=== PATIENT | male | born 1980 | race Caucasian/White ===

== ENCOUNTER 2018-02-22 01:22 | Emergency (ER) | payer OTHER ==
[~2018-02-22] VITALS: Ht 167.6 cm; Wt 95.3 kg
--- NOTE | 2018-02-22 01:35 | ED.ADGEN ---
Past History Past Medical History: Bipolar, Depression Past Surgical History: Other Additional Smoking Information: 1 PPD Alcohol Use: None Drug Use: None Adult General Chief Complaint Chief Complaint " .. I was working on A frame.. and it slipped and caught my Rt little finger tip... and cut it off.. " HPI HPI Patient is a 37 year old male who presents with avulsion injury to Lt 5th finger tip. Pt. working at [employer]. Saw horse kicked out and he caught Lt. 5th finger under frame reportedly. Pt. distal tissue is completely crushed and contaminated with debris. Half of nail is missing. Pt is right hand dominate. Pt. does have ROM of Lt 5th finger. No other injury reported. No hx of immunosuppression. No hx of ill exposure. Not had tetanus update since high school. Review of Systems Review of Systems Constitutional: Denies fever or chills [] Eyes: Denies change in visual acuity, redness, or eye pain [] HENT: Denies nasal congestion or sore throat [] Respiratory: Denies cough or shortness of breath [] Cardiovascular: No additional information not addressed in HPI [] GI: Denies abdominal pain, nausea, vomiting, bloody stools or diarrhea [] : Denies dysuria or hematuria [] Musculoskeletal: Denies back pain or joint pain []Complaints of lt finger 5th tip amputation. Integument: Denies rash or skin lesions [] Neurologic: Denies headache, focal weakness or sensory changes [] Endocrine: Denies polyuria or polydipsia [] All other systems were reviewed and found to be within normal limits, except as documented in this note. Family History Family History Non-contributory Current Medications Current Medications Current Medications Medications (Trade) Dose Ordered Sig/Altagracia Start Time Stop Time Status Last Admin Dose Admin Bacitracin/ Polymyxin B Sulfate (Polysporin) 15 shravan STK-MED ONCE 02/22/18 02:22 02/22/18 02:23 DC Bupivacaine HCl (Sensorcaine Mpf 0.5%) 10 ml 1X ONCE 02/22/18 02:00 02/22/18 02:01 DC 02/22/18 02:00 10 ML Ceftriaxone Sodium (Rocephin Im) 1 gm 1X ONCE 02/22/18 02:00 02/22/18 02:01 DC 02/22/18 02:32 1 GM Lidocaine HCl 50 ml 1X ONCE 02/22/18 02:00 02/22/18 02:01 DC 02/22/18 02:00 50 ML Tetanus/ Diphtheria Toxoids Adsorbed (Tenivac Vial) 0.5 ml ONCE ONCE 02/22/18 02:00 02/22/18 02:01 DC 02/22/18 02:33 0.5 ML Allergies Allergies Allergies Coded Allergies Type Severity Reaction Last Updated Verified No Known Drug Allergies 09/24/15 No Physical Exam Physical Exam Constitutional: Well developed, well nourished, in acute distress, non-toxic appearance. [] HENT: Normocephalic, atraumatic, bilateral external ears normal, oropharynx moist, no oral exudates, nose normal. [] Eyes: PERRLA, EOMI, conjunctiva normal, no discharge. [] Neck: Normal range of motion, no tenderness, supple, no stridor. [] Cardiovascular:Heart rate regular rhythm, no murmur [] Lungs & Thorax: Bilateral breath sounds equal at apex with few scattered wheezes on auscultation [] Abdomen: Bowel sounds normal, soft, no tenderness, no masses, no pulsatile masses. [] Skin: Warm, dry, no erythema, no rash. [] Back: No tenderness, no CVA tenderness. [] Extremities: No tenderness, no cyanosis, no clubbing, ROM intact, no edema. [] Except amputation injury as per HPI, Neurologic: Alert and oriented X 3, normal motor function, normal sensory function, no focal deficits noted. [] Psychologic: Affect anxious, judgement normal, mood normal. [] Current Patient Data Vital Signs Vital Signs Date Time Temp Pulse Resp B/P (MAP) Pulse Ox O2 Delivery O2 Flow Rate FiO2 02/22/18 01:26 98.0 93 20 97 Room Air EKG EKG [] Radiology/Procedures Radiology/Procedures My interpretation of hand shows crush injury with loss of finger tip 5th[] Course & Med Decision Making Course & Med Decision Making Pertinent Labs and Imaging studies reviewed. (See chart for details) Injury cleaning and limited repair. - Tip skin of 5th finger Lt. was crushed and on Ice. Tissue was not amendable to re- attachment. Hand and wound cleaned with surgical soap and water. Digital block with Lido and Sensorcaine. Re-irrigated with range of motion with NS extensively. Scrapped edge of wound to remove debris.. Six 4-0 Prolene suture s to draw finger pad over tip of finger. Required 3 sutures thru. nail. Bactracin ointment apply with bulky noncompressive dressing. David tapped to 4th finger. Pt. to take Keflex 500 three times day x 10 day. Must follow with work comp. Pt. to take a daily ASA. Pt. encourage not to smoke. Elevate hand tonight to reduce pain. Take tylenol and ibuprofen or NSAIDs for pain. May need further surgical repair. [] Final Impression Final Impression 1. Avulsion / Amputation Injury. [] Lt 5th finger. Dragon Disclaimer Dragon Disclaimer This electronic medical record was generated, in whole or in part, using a voice recognition dictation system. CHAS JOYNER MD Feb 22, 2018 01:35
[2018-02-22] MEDS: LIDOCAINE 1% 50 ML VIAL. IV ONE (02:00)
[2018-02-22] MEDS: BUPIVACAINE MPF 0.5% 10 ML VIAL. IJ ONE (02:00)
[2018-02-22] MEDS ORDERED: BACITRACIN/POLYMYXIN B TOPICAL OINT 15GM TUBE. TP ONE ×2 (02:22→04:15)
[2018-02-22] MEDS: cefTRIAXone IM 1 GM VIAL IM ONE (02:32)
[2018-02-22] MEDS: TETANUS AND DIPHTHERIA TOX/PF 0.5 ML VIAL. VAX IM ONE (02:33)
[2018-02-22] MEDS ORDERED: BACI28.34 TP (02:39)
[2018-02-22] MEDS ORDERED: CEPH-264 PO (02:39)
[2018-02-22 02:44] VITALS: BP 120/75
[2018-02-22] MEDS ORDERED: NEOMY/BACITR/POLYMYXIN OINT PACKET. TP ONE (03:53)
--- NOTE | 2018-02-22 08:03 | RAD ---
Indication: Smashed left fifth digit. technique: 3 views of the left hand COMPARISON: None FINDINGS: There is elevation of the tip of the fifth finger including the tip of the distal phalanx of the fifth finger with overlying soft tissue laceration. No other fracture or dislocation. IMPRESSION: Amputation of the tip of the fifth finger including the tip of the distal phalanx. Electronically signed by: Brandt Thacker DO (02/22/2018 8:00 AM) [facility]
== END 2018-02-22 02:56 | disposition home or self-care (01) ==
LOC: ER 01:22
DX: S68.117A Complete traumatic metacarpophalangeal amputation of left little finger, initial encounter (principal); F31.9 Bipolar disorder, unspecified; F17.210 Nicotine dependence, cigarettes, uncomplicated; W26.8XXA Contact with other sharp object(s), not elsewhere classified, initial encounter; Y93.89 Activity, other specified; Y92.89 Other specified places as the place of occurrence of the external cause; Y99.8 Other external cause status
CPT/HCPCS: 11730; 73130; 90471; 90714; 96372; 99284; J0696

== ENCOUNTER 2018-09-07 19:28 | Emergency (ER) | payer BC, OTHER ==
[~2018-09-07] VITALS: Ht 167.6 cm; Wt 95.0 kg
[~2018-09-07 19:28] MED LIST: BACI28.34 TP; CEPH-264 PO
--- NOTE | 2018-09-07 19:35 | ED.ADGEN ---
Past History Past Medical History: Bipolar, Depression, GERD Past Surgical History: Other Smoking: Cigarettes Alcohol Use: None Drug Use: None Adult General Chief Complaint Chief Complaint ".. I got severe abdomen pain.. I ve had stuff like this before.. they thought it was gastritis or ulcer... I ate a steak about 1 1/2 hours ago... and it r eally set off my stomach pain..." HPI HPI Patient is a 38 year old male who presents with above hx and complaints of generalized upper abdomen tenderness. Patient states he's had this discomfort before and was diagnosed with GERD and gastritis and possible ulcer.. At that time he was treated with Carafate. Patient has had a colonoscopy a number years ago in which they evaluated suspected abdomen masses. Patient denies any tarry stools. Patient does smoke. No recent travel or specific ill contacts. No history of bad food intake. Patient normally follows with Dr. De Anda. No family history or patient history of renal stones, IBS, colitis, Crohn's, or gallbladder disease. Patient currently rates his pain as severe. Review of Systems Review of Systems Constitutional: Denies fever or chills [] Eyes: Denies change in visual acuity, redness, or eye pain [] HENT: Denies nasal congestion or sore throat [] Respiratory: Denies cough or shortness of breath [] Cardiovascular: No additional information not addressed in HPI [] GI: Complaints of upper abdominal pain, nausea,. Denies vomiting, bloody stools or diarrhea [] : Denies dysuria or hematuria [] Musculoskeletal: Denies back pain or joint pain [] Integument: Denies rash or skin lesions [] Neurologic: Denies headache, focal weakness or sensory changes [] Endocrine: Denies polyuria or polydipsia [] All other systems were reviewed and found to be within normal limits, except as documented in this note. Family History Family History Does not know family medical history. Current Medications Current Medications Current Medications Medications (Trade) Dose Ordered Sig/Altagracia Start Time Stop Time Status Last Admin Dose Admin Famotidine (Pepcid Vial) 20 mg STK-MED ONCE 09/07/18 20:04 09/07/18 20:05 DC Iohexol (Omnipaque 240 Mg/ml) 50 ml 1X ONCE 09/07/18 20:30 5/15/19 20:31 DC 09/07/18 22:10 50 ML Iohexol (Omnipaque 300 Mg/ml) 75 ml 1X ONCE 09/07/18 20:30 09/07/18 20:31 DC 09/07/18 22:10 75 ML Lactated Ringer's 1,000 ml @ 1,000 mls/hr 1X ONCE 09/07/18 22:30 09/07/18 23:29 DC Lorazepam (Ativan Inj) 2 mg 1X ONCE 09/07/18 20:45 09/07/18 20:46 DC 09/07/18 20:50 2 MG Magnesium Hydroxide (Milk Of Magnesia) 2,400 mg 1X ONCE 09/07/18 20:15 09/07/18 20:16 DC 09/07/18 20:11 2,400 MG Morphine Sulfate (Morphine 10mg Syringe) 10 mg 1X ONCE 09/07/18 20:15 09/07/18 20:16 DC 09/07/18 20:11 10 MG Ondansetron HCl (Zofran) 4 mg STK-MED ONCE 09/07/18 20:03 09/07/18 20:04 DC Allergies Allergies Allergies Coded Allergies Type Severity Reaction Last Updated Verified No Known Drug Allergies 09/24/15 No Physical Exam Physical Exam Constitutional: Moderately acute distress, non-toxic appearance. [] HENT: Normocephalic, atraumatic, bilateral external ears normal, oropharynx moist, no oral exudates, nose normal. [] Eyes: PERRLA, EOMI, conjunctiva normal, no discharge. [] Neck: Normal range of motion, no tenderness, supple, no stridor. [] Cardiovascular:Heart rate regular rhythm, no murmur [] Lungs & Thorax: Bilateral breath sounds equal at apex with scattered wheezes on auscultation [] Abdomen: Bowel sounds hyperactive, soft, epigastric tenderness, no masses, no pulsatile masses. Declines rectal exam this time. Abdomen is distended. No true rebound, but generalized pain. Skin: Warm, dry, no erythema, no rash. Multiple tattoos. Back: No tenderness, no CVA tenderness. [] Extremities: No tenderness, no cyanosis, no clubbing, ROM intact, no edema. [] No true psoas sign. Neurologic: Alert and oriented X 3, normal motor function, normal sensory function, no focal deficits noted. [] Psychologic: Affect anxious, judgement normal, mood normal. [] Current Patient Data Vital Signs Vital Signs Date Time Temp Pulse Resp B/P (MAP) Pulse Ox O2 Delivery O2 Flow Rate FiO2 09/07/18 23:31 92 17 126/88 (101) 97 09/07/18 20:41 Room Air 09/07/18 19:42 98.4 Lab Results Laboratory Tests Test 09/07/18 20:28 09/07/18 22:28 White Blood Count 9.5 x10^3/uL (4.0-11.0) Red Blood Count 5.28 x10^6/uL (4.30-5.70) Hemoglobin 16.3 g/dL (13.0-17.5) Hematocrit 46.7 % (39.0-53.0) Mean Corpuscular Volume 89 fL (79-100) Mean Corpuscular Hemoglobin 31 pg (25-35) Mean Corpuscular Hemoglobin Concent 35 g/dL (31-37) Red Cell Distribution Width 13.2 % (11.5-14.5) Platelet Count 335 x10^3/uL (140-400) Neutrophils (%) (Auto) 47 % (31-73) Lymphocytes (%) (Auto) 37 % (24-48) Monocytes (%) (Auto) 14 % (0-9) H Eosinophils (%) (Auto) 2 % (0-3) Basophils (%) (Auto) 0 % (0-3) Neutrophils # (Auto) 4.5 x10^3uL (1.8-7.7) Lymphocytes # (Auto) 3.5 x10^3/uL (1.0-4.8) Monocytes # (Auto) 1.3 x10^3/uL (0.0-1.1) H Eosinophils # (Auto) 0.2 x10^3/uL (0.0-0.7) Basophils # (Auto) 0.0 x10^3/uL (0.0-0.2) Prothrombin Time 10.1 SEC (9.4-11.4) Prothrombin Time INR 1.0 (0.9-1.1) PTT 27 SEC (23-33) Sodium Level 138 mmol/L (136-145) Potassium Level 3.6 mmol/L (3.5-5.1) Chloride Level 101 mmol/L (98-107) Carbon Dioxide Level 26 mmol/L (21-32) Anion Gap 11 (6-14) Blood Urea Nitrogen 22 mg/dL (8-26) Creatinine 1.5 mg/dL (0.7-1.3) H Estimated GFR (Cockcroft-Gault) 51.8 Glucose Level 105 mg/dL (70-99) H Calcium Level 9.4 mg/dL (8.5-10.1) Total Bilirubin 0.5 mg/dL (0.2-1.0) Direct Bilirubin 0.1 mg/dL (0.0-0.2) Aspartate Amino Transferase (AST) 27 U/L (15-37) Alanine Aminotransferase (ALT) 36 U/L (16-63) Alkaline Phosphatase 80 U/L (46-116) Creatine Kinase 931 U/L (39-308) H Troponin I Quantitative < 0.017 ng/mL (0-0.055) Total Protein 8.1 g/dL (6.4-8.2) Albumin 4.3 g/dL (3.4-5.0) Amylase Level 45 U/L (25-115) Lipase 110 U/L (73-393) Urine Collection Type Unknown Urine Color Yellow Urine Clarity Clear Urine pH 5.5 Urine Specific Fitzwilliam 1.015 Urine Protein Neg (NEG-TRACE) Urine Glucose (UA) Neg mg/dL (NEG) Urine Ketones (Stick) Neg mg/dL (NEG) Urine Blood Neg (NEG) Urine Nitrite Neg (NEG) Urine Bilirubin Neg (NEG) Urine Urobilinogen Dipstick 0.2 mg/dL (0.2 mg/dL) Urine Leukocyte Esterase Neg (NEG) Urine RBC 0 /HPF (0-2) Urine WBC Rare /HPF (0-4) Urine Squamous Epithelial Cells Occ /LPF Urine Bacteria 0 /HPF (0-FEW) Urine Opiates Screen Pos (NEG) Urine Methadone Screen Neg (NEG) Urine Barbiturates Neg (NEG) Urine Phencyclidine Screen Neg (NEG) Urine Amphetamine/Methamphetamine Neg (NEG) Urine Benzodiazepines Screen Neg (NEG) Urine Cocaine Screen Neg (NEG) Urine Cannabinoids Screen Pos (NEG) Urine Ethyl Alcohol Neg (NEG) EKG EKG My interpretation of EKG shows a sinus rhythm at 83 bpm. There are mild leftward axis changes. But no findings acute STEMI with contralateral changes.[] Radiology/Procedures Radiology/Procedures My interpretation of acute abdomen film shows no nipple studs. No free air under diaphragm. Nonspecific bowel gas pattern. Stool throughout the colon. Nonobstructive bowel gas pattern. CT of abdomen shows no surgical pathology. Bladder was distended. Appendix was well visualized within normal limits. Gallbladder was contracted. See formal report when available[] Course & Med Decision Making Course & Med Decision Making Pertinent Labs and Imaging studies reviewed. (See chart for details) Patient remain on a clear fluid diet for 2 days. No solids or milk products must allow bowel rest. Clear fluids only. Take Tylenol and ibuprofen pain. Take Zantac 150 mg twice a day. Follow-up primary care. Get out patient GI consult for an EGD and repeat colonoscopy. Patient return if any concerns. Patient encouraged not to smoke. [] Final Impression Final Impression 1. Abdomen Pain 2. Tobacco and marijuana Use[] 3. Elevated creatinine 1.5 4. Elevated CK 931 5. Suspect gastritis/duodenitis Dragon Disclaimer Dragon Disclaimer This electronic medical record was generated, in whole or in part, using a voice recognition dictation system. Dragon Disclaimer This chart was dictated in whole or in part using Voice Recognition software in a busy, high-work load, and often noisy Emergency Department environment. It may contain unintended and wholly unrecognized errors or omissions. Discharge Summary Visit Information Final Diagnosis Problems Medical Problems: (1) Gastritis Status: Acute (2) Pain in the abdomen Status: Acute Brief Hospital Course Allergies Allergies Coded Allergies Type Severity Reaction Last Updated Verified No Known Drug Allergies 09/24/15 No Vital Signs Vital Signs Date Time Temp Pulse Resp B/P (MAP) Pulse Ox O2 Delivery O2 Flow Rate FiO2 09/07/18 23:31 92 17 126/88 (101) 97 09/07/18 20:41 Room Air 09/07/18 19:42 98.4 Lab Results Laboratory Tests Test 09/07/18 20:28 09/07/18 22:28 White Blood Count 9.5 x10^3/uL (4.0-11.0) Red Blood Count 5.28 x10^6/uL (4.30-5.70) Hemoglobin 16.3 g/dL (13.0-17.5) Hematocrit 46.7 % (39.0-53.0) Mean Corpuscular Volume 89 fL (79-100) Mean Corpuscular Hemoglobin 31 pg (25-35) Mean Corpuscular Hemoglobin Concent 35 g/dL (31-37) Red Cell Distribution Width 13.2 % (11.5-14.5) Platelet Count 335 x10^3/uL (140-400) Neutrophils (%) (Auto) 47 % (31-73) Lymphocytes (%) (Auto) 37 % (24-48) Monocytes (%) (Auto) 14 % (0-9) Eosinophils (%) (Auto) 2 % (0-3) Basophils (%) (Auto) 0 % (0-3) Neutrophils # (Auto) 4.5 x10^3uL (1.8-7.7) Lymphocytes # (Auto) 3.5 x10^3/uL (1.0-4.8) Monocytes # (Auto) 1.3 x10^3/uL (0.0-1.1) Eosinophils # (Auto) 0.2 x10^3/uL (0.0-0.7) Basophils # (Auto) 0.0 x10^3/uL (0.0-0.2) Prothrombin Time 10.1 SEC (9.4-11.4) Prothromb Time International Ratio 1.0 (0.9-1.1) Activated Partial Thromboplast Time 27 SEC (23-33) Sodium Level 138 mmol/L (136-145) Potassium Level 3.6 mmol/L (3.5-5.1) Chloride Level 101 mmol/L (98-107) Carbon Dioxide Level 26 mmol/L (21-32) Anion Gap 11 (6-14) Blood Urea Nitrogen 22 mg/dL (8-26) Creatinine 1.5 mg/dL (0.7-1.3) Estimated GFR (Cockcroft-Gault) 51.8 Glucose Level 105 mg/dL (70-99) Calcium Level 9.4 mg/dL (8.5-10.1) Total Bilirubin 0.5 mg/dL (0.2-1.0) Direct Bilirubin 0.1 mg/dL (0.0-0.2) Aspartate Amino Transf (AST/SGOT) 27 U/L (15-37) Alanine Aminotransferase (ALT/SGPT) 36 U/L (16-63) Alkaline Phosphatase 80 U/L (46-116) Creatine Kinase 931 U/L (39-308) Troponin I Quantitative < 0.017 ng/mL (0-0.055) Total Protein 8.1 g/dL (6.4-8.2) Albumin 4.3 g/dL (3.4-5.0) Amylase Level 45 U/L (25-115) Lipase 110 U/L (73-393) Urine Collection Type Unknown Urine Color Yellow Urine Clarity Clear Urine pH 5.5 Urine Specific Fitzwilliam 1.015 Urine Protein Neg (NEG-TRACE) Urine Glucose (UA) Neg mg/dL (NEG) Urine Ketones (Stick) Neg mg/dL (NEG) Urine Blood Neg (NEG) Urine Nitrite Neg (NEG) Urine Bilirubin Neg (NEG) Urine Urobilinogen Dipstick 0.2 mg/dL (0.2 mg/dL) Urine Leukocyte Esterase Neg (NEG) Urine RBC 0 /HPF (0-2) Urine WBC Rare /HPF (0-4) Urine Squamous Epithelial Cells Occ /LPF Urine Bacteria 0 /HPF (0-FEW) Urine Opiates Screen Pos (NEG) Urine Methadone Screen Neg (NEG) Urine Barbiturates Neg (NEG) Urine Phencyclidine Screen Neg (NEG) Urine Amphetamine/Methamphetamine Neg (NEG) Urine Benzodiazepines Screen Neg (NEG) Urine Cocaine Screen Neg (NEG) Urine Cannabinoids Screen Pos (NEG) Urine Ethyl Alcohol Neg (NEG) Brief Hospital Course Mr. Dockery is a 38 old [sex] who presented with [ ] Discharge Information Dischare Medications Current Medications Lactated Ringer's 1,000 ml @ 1,000 mls/hr Q1H IV Last administered on 09/07/18at 20:12; Admin Dose 1,000 MLS/HR; Start 09/07/18 at 19:51; Stop 09/07/18 at 20:50; Status DC Ondansetron HCl (Zofran) 8 mg 1X ONCE IV Last administered on 09/07/18at 20:11; Admin Dose 8 MG; Start 09/07/18 at 20:15; Stop 09/07/18 at 20:16; Status DC Famotidine (Pepcid Vial) 20 mg 1X ONCE IVP Last administered on 09/07/18at 20:11; Admin Dose 20 MG; Start 09/07/18 at 20:15; Stop 09/07/18 at 20:16; Status DC Magnesium Hydroxide (Milk Of Magnesia) 2,400 mg 1X ONCE PO Last administered on 09/07/18at 20:11; Admin Dose 2,400 MG; Start 09/07/18 at 20:15; Stop 09/07/18 at 20:16; Status DC Morphine Sulfate (Morphine 10mg Syringe) 10 mg 1X ONCE SQ Last administered on 09/07/18at 20:11; Admin Dose 10 MG; Start 09/07/18 at 20:15; Stop 09/07/18 at 20:16; Status DC Ondansetron HCl (Zofran) 4 mg STK-MED ONCE .ROUTE ; Start 09/07/18 at 20:03; Stop 09/07/18 at 20:04; Status DC Famotidine (Pepcid Vial) 20 mg STK-MED ONCE .ROUTE ; Start 09/07/18 at 20:04; Stop 09/07/18 at 20:05; Status DC Iohexol (Omnipaque 240 Mg/ml) 50 ml 1X ONCE PO Last administered on 09/07/18at 22:10; Admin Dose 50 ML; Start 09/07/18 at 20:30; Stop 09/07/18 at 20:31; Status DC Iohexol (Omnipaque 300 Mg/ml) 75 ml 1X ONCE IV Last administered on 09/07/18at 22:10; Admin Dose 75 ML; Start 09/07/18 at 20:30; Stop 09/07/18 at 20:31; Status DC Lorazepam (Ativan Inj) 2 mg 1X ONCE IV Last administered on 09/07/18at 20:50; Admin Dose 2 MG; Start 09/07/18 at 20:45; Stop 09/07/18 at 20:46; Status DC Lactated Ringer's 1,000 ml @ 1,000 mls/hr 1X ONCE IV ; Start 09/07/18 at 22:30; Stop 09/07/18 at 23:29; Status DC Active Scripts Active Zantac (Ranitidine Hcl) 150 Mg Tablet 1 Tab PO BID Polysporin Ointment (Bacitracin/Polymyxin B Sulfate) 28.3 Gm Oint...g. 28.3 Gm TP QID 30 Days Keflex (Cephalexin) 500 Mg Capsule 500 Mg PO TID 10 Days CHAS JOYNER MD September 07, 2018 19:35
[2018-09-07] MEDS ORDERED: IV RINGERS SOLUTION,LACTATED 1,000 ML IV SCH (19:51)
[2018-09-07] MEDS ORDERED: ONDANSETRON PF 4 MG/2 ML VIAL. ONE (20:03)
[2018-09-07] MEDS ORDERED: FAMOTIDINE 20 MG/2 ML VIAL ONE (20:04)
[2018-09-07] MEDS ORDERED: MORPHINE SULFATE 10 MG/ML SYRINGE. SQ ONE (20:15)
[2018-09-07] MEDS ORDERED: MAGNESIUM HYDROXIDE 2,400 MG/30 ML ORAL.SUSP. PO ONE (20:15)
[2018-09-07] MEDS ORDERED: FAMOTIDINE 20 MG/2 ML VIAL IVP ONE (20:15)
[2018-09-07] MEDS ORDERED: ONDANSETRON PF 4 MG/2 ML VIAL. IV ONE (20:15)
--- NOTE | 2018-09-07 20:16 | EKG ---
[address] [id number] Test Date: 2018-09-07 Test Time: 20:13:15 Pat Name: ARNULFO SIMS Department: Room: Gender: M Farm Equipment Assembler: GIOVANI : 1980 Requested By: CHAS JOYNER Order Number: [id number] Reading MD: Michele Donis Measurements Intervals [place] Rate: 83 P: 31 ME: 154 QRS: -1 QRSD: 78 T: 6 QT: 342 QTc: 402 Interpretive Statements SINUS RHYTHM LEFTWARD AXIS Electronically Signed On 09-30-2018 12:09:56 CDT by Michele Donis
[2018-09-07] MEDS ORDERED: IOHEXOL 240 MG/ML 50ML VIAL. PO ONE (20:30)
[2018-09-07] MEDS ORDERED: IOHEXOL 300 MG/ML 75 ML VIAL. IV ONE (20:30)
[2018-09-07 20:55] LABS: BASO % 0 % (0-3); EOS # 0.2 x10^3/uL (0.0-0.7); EOS % 2 % (0-3); HEMATOCRIT 46.7 % (39.0-53.0); HEMOGLOBIN 16.3 g/dL (13.0-17.5); LYMPH # 3.5 x10^3/uL (1.0-4.8); LYMPH % 37 % (24-48); MEAN CORPUSCULAR HEMOGLOBIN 31 pg (25-35); MEAN CORPUSCULAR HGB CONC 35 g/dL (31-37); MEAN CORPUSCULAR VOLUME 89 fL (79-100); MONO # 1.3 x10^3/uL (0.0-1.1); MONO % 14 % (0-9); NEUT # 4.5 x10^3uL (1.8-7.7); NEUT % 47 % (31-73); PLATELET COUNT 335 x10^3/uL (140-400); RED BLOOD COUNT 5.28 x10^6/uL (4.30-5.70); RED CELL DISTRIBUTION WIDTH 13.2 % (11.5-14.5); WHITE BLOOD COUNT 9.5 x10^3/uL (4.0-11.0)
[2018-09-07 21:12] LABS: ALBUMIN 4.3 g/dL (3.4-5.0); CALCIUM 9.4 mg/dL (8.5-10.1); CREATININE 1.5 mg/dL (0.7-1.3); DIRECT BILIRUBIN 0.1 mg/dL (0.0-0.2); GFR 51.8; POTASSIUM 3.6 mmol/L (3.5-5.1); TOTAL BILIRUBIN 0.5 mg/dL (0.2-1.0); TOTAL PROTEIN 8.1 g/dL (6.4-8.2)
[2018-09-07] MEDS ORDERED: IV RINGERS SOLUTION,LACTATED 1,000 ML IV ONE (22:30)
[2018-09-07 22:56] LABS: BARBITURATES NEG (NEG); BENZODIAZEPINES NEG (NEG); CANNABINOIDS POS (NEG); COCAINE NEG (NEG); METHADONE NEG (NEG); OPIATES POS (NEG); PHENCYCLIDINE NEG (NEG)
--- NOTE | 2018-09-07 22:56 | RAD ---
CT scan abdomen and pelvis with contrast 09/07/2018 CLINICAL HISTORY: Upper abdominal pain. Nausea and vomiting. TECHNIQUE: After the oral and intravenous administration of contrast, contiguous, 5 mm axial sections were obtained through abdomen and pelvis. 75 cc of Omnipaque 300 were administered intravenously during this examination. One or more of the following individualized dose reduction techniques were utilized for this study: 1. Automated exposure control. 2. Adjustment of the mA and/or kV according to patient size. 3. Use of iterative reconstruction technique. FINDINGS: Images through the lung bases demonstrate minimal dependent subsegmental atelectasis bilaterally. The liver parenchyma has a decreased attenuation consistent with fatty infiltration. The spleen, pancreas, adrenal glands and kidneys are within normal limits. The abdominal aorta tapers normally. The gallbladder is contracted. No free fluid or free air is seen within the abdomen. There is no evidence of bowel obstruction. The appendix is well-visualized and is within normal limits. Images through the pelvis demonstrate the urinary bladder distended with urine. No free fluid is seen. Calcifications are seen within the pelvis consistent with phleboliths. Minimal S-shaped curvature of the thoracolumbar spine is seen. IMPRESSION: No acute abnormality is seen. Electronically signed by: Carlo Islas MD (09/07/2018 10:53 PM) [facility]
[2018-09-07 22:57] LABS: BILIRUBIN,URINE NEG (NEG); CLARITY,URINE CLEAR; COLOR,URINE YELLOW; GLUCOSE,URINE NEG (NEG); NITRITE,URINE NEG (NEG); UROBILINOGEN,URINE 0.2 mg/dL (0.2 mg/dL)
[2018-09-07 22:58] LABS: BACTERIA,URINE 0 /HPF (0-FEW); RBC,URINE 0 /HPF (0-2); SQUAMOUS EPITHELIAL CELL,UR OCC /LPF; WBC,URINE RARE /HPF (0-4)
[2018-09-07 22:59] LABS: AMPHETAMINE/METHAMPHETAMINE NEG (NEG)
[2018-09-07] MEDS ORDERED: RANI150T21 PO (23:09)
[2018-09-07 23:31] VITALS: BP 126/88
--- NOTE | 2018-09-08 00:14 | RAD ---
Acute abdominal series to include a PA chest radiograph 09/07/2018 Clinical History: Upper abdominal pain. A PA digital radiograph of the chest was obtained. Supine and erect AP digital radiographs of the abdomen/pelvis were obtained. No previous studies are available for comparison. The cardiac and mediastinal silhouettes are within normal limits in size and configuration. No pulmonary infiltrate is seen. No pleural effusion or pneumothorax is noted. The abdominal bowel gas pattern is nonobstructive. There is no evidence of free air. No radiopaque calculus is seen. The osseous structures are grossly intact. Impression: Negative study. Electronically signed by: Carlo Islas MD (09/08/2018 12:11 AM) [facility]
== END 2018-09-07 23:35 | disposition home or self-care (01) ==
LOC: ER 19:28
DX: K29.70 Gastritis, unspecified, without bleeding (principal); R79.82 Elevated C-reactive protein (CRP); F31.9 Bipolar disorder, unspecified; K21.9 Gastro-esophageal reflux disease without esophagitis; F17.210 Nicotine dependence, cigarettes, uncomplicated; F12.90 Cannabis use, unspecified, uncomplicated
CPT/HCPCS: 36415; 74022; 74177; 80048; 80076; 80307; 81001; 82150; 82550; 83690; 84484; 85025; 85610; 85730; 93005; 96361; 96372; 96374; 96375; 99285; J2060; J2270; J2405; J3490; J7120; Q9966; Q9967

== ENCOUNTER 2020-12-10 21:10 | Emergency (ER) | payer BC ==
[~2020-12-10] VITALS: Ht 167.6 cm; Wt 95.0 kg
[~2020-12-10 21:10] MED LIST changes: +RANI-376 PO
[2020-12-10 21:20] VITALS: BP 144/88
[2020-12-10] MEDS ORDERED: AMOX1TAB61 PO (22:12)
--- NOTE | 2020-12-10 22:12 | PHYS DOC ---
Past History Past Medical History: Bipolar, Depression, GERD (ELÍAS FINK APRN) Past Surgical History: Other (ELÍAS FINK APRN) Smoking: Cigarettes Alcohol Use: Occasionally Drug Use: None (ELÍAS FINK APRN) General Adult EDM: Chief Complaint: ANIMAL BITE HPI: HPI: Patient is a 40-year-old male who presents to the ER following a dog bite to his left anterior lower leg. He reports that his 2 dogs were fighting and he tried to break it up and he was bit. He reports that the dogs were vaccinated. Tetanus up-to-date. Patient states that he is unable to bear weight but he does not think that he has a fracture. Patient has good range of motion of his lower extremities and denies any decreased sensation to his lower extremity. (ELÍAS FINK APRN) Review of Systems: Review of Systems: 14 body systems of the review of systems have been reviewed. See HPI for pertinent positive and negative responses, otherwise all other systems are negative, nonpertinent or noncontributory (ELÍAS FINK APRN) Allergies: Allergies: Allergies Coded Allergies Type Severity Reaction Last Updated Verified No Known Drug Allergies 09/24/15 No (ELÍAS FINK APRN) Physical Exam: PE: Constitutional: Well developed, well nourished, no acute distress, non-toxic appearance. [] HENT: Normocephalic, atraumatic, bilateral external ears normal, oropharynx moist, no oral exudates, nose normal. [] Eyes: PERRL, EOMI, conjunctiva normal, no discharge. [] Neck: Normal range of motion, no stridor Cardiovascular: Normal peripheral perfusion Lungs & Thorax: Normal work of breathing Skin: Warm, dry, no erythema, no rash. [] Back: Normal range of motion Extremities: No tenderness, no cyanosis, no clubbing, ROM intact, no edema. [] Left lower extremity: 5 cm x 1 cm laceration noted to his left lower anterior calf with a 1 cm puncture to the posterior aspect of his left calf, no active bleeding, neuro intact, range of motion intact Neurologic: Alert and oriented X 3, normal motor function, normal sensory function, no focal deficits noted. [] Psychologic: Affect normal, judgement normal, mood normal. [] (ELÍAS FINK APRN) EKG: EKG: [] (ELÍAS FNIK APRN) Radiology/Procedures: Radiology/Procedures: [] (ELÍAS FINK APRN) Heart Score: C/O Chest Pain: No Risk Factors: Risk Factors: DM, Current or recent (<one month) smoker, HTN, HLP, family history of CAD, obesity. Risk Scores: Score 0 - 3: 2.5% MACE over next 6 weeks - Discharge Home Score 4 - 6: 20.3% MACE over next 6 weeks - Admit for Clinical Observation Score 7 - 10: 72.7% MACE over next 6 weeks - Early Invasive Strategies (ELÍAS FINK APRN) Course & Med Decision Making: Course & Med Decision Making Pertinent Labs and Imaging studies reviewed. (See chart for details) Patient is a 40-year-old male being seen in the ER for a dog bite to his left lower leg. Dog is vaccinated. Tetanus up-to-date per patient. Patient is refusing an x-ray. Wound was cleansed with chlorhexidine and saline. Laceration was repaired. Patient tolerated procedure. Neurologically intact pre and post procedure. Wound was dressed. Patient given signs of infection to watch for. Patient advised to follow-up with plastic surgery at [facility]. I discussed with patient all findings and diagnostic testing as well as the need to follow-up with PCP for further evaluation and treatment or return to the ER if any new or worsening symptoms. Strict return precautions were also discussed at length. Patient voiced understanding and agreement with the plan. Patient is hemodynamically stable at the time of disposition. (ELÍAS FINK APRN) Course & Med Decision Making Did not see or evaluate patient. Agree with DIRECTOR OF HOME ECONOMICS's work-up and disposition per note. (MARICEL WAGNER MD) Dragon Disclaimer: Dragon Disclaimer: This electronic medical record was generated, in whole or in part, using a voice recognition dictation system. (ELÍAS FINK APRN) Laceration Repair Lac Repair Time: 2007 Confirmed: Patient, procedure, site, and site correct Consent: Patient has given verbal consent Laceration location: Left lower extremity Shape: Irregular Depth: With muscle involvement Details: Clean with no foreign material Neurovascular, tendon exam: Intact Anesthesia: 1% lidocaine and let Preparation: Sterile field established Irrigation: Wound irrigated with chlorhexidine and sterile saline Debridement: Skin closure: Simple interrupted sutures placed Size of suture: 3-0 Ethilon Number of sutures: 6 sutures placed to the anterior aspect of left lower extremity. One suture placed to laceration in the posterior aspect of left lower extremity Complexity: Single layer Post procedure exam: Circulation, motor, sensory exam intact, bleeding controlled. Complications: None Patient tolerated: Well Performed by: self Total time: 50 minutes (ELÍAS FINK APRN) Departure Departure: Impression: Primary Impression: Laceration Additional Impression: Animal bite Disposition: HOME / SELF CARE / HOMELESS Condition: GOOD Referrals: ANTHONY WU (PCP) Patient Instructions: Laceration Care, Adult Additional Instructions: You are seen in the ER following a dog bite. Your laceration was cleansed and repaired with sutures. Please wash this with warm water and mild soap. You can take Tylenol/ibuprofen for pain. Do not submerge your leg in any water for 48 hours. Sutures should be removed in 7 to 10 days. You can go to your primary care provider or return to the ER for removal. Monitor your laceration for signs of infection which include redness, warmth, swelling, drainage. You were given your first dose of antibiotic in the ER and discharged home with a prescription. Please start and finish that completely. You should follow-up with your primary care provider tomorrow. If you do not have a primary care provider you can follow-up with plastic surgery at [phone]. EMERGENCY DEPARTMENT GENERAL DISCHARGE INSTRUCTIONS Thank you for coming to [facility] (ED) today and trusting us with you care. We trust that you had a positivie experience in our Emergency Department. If you wish to speak to the department management, you may call the director at [phone]. YOUR FOLLOW UP INSTRUCTIONS ARE FOLLOWS: 1. Do you have a private Doctor? If you do not have a private doctor, please ask for a resource list of physicians or clinics that may be able to assist you with follow up care. 2. The Emergency Physician has interpreted your x-rays. The X-Ray specialist will also review them. If there is a change in the findings, you will be notified in 48 hours when at all possible. 3. A lab test or culture has been done, your results will be reviewed and you will be notified if you need a change in treatment. ADDITIONAL INSTRUCTIONS AND INFORMATION: 1. Your care today has been supervised by a physician who is specially trained in emergency care. Many problems require more than one evaluation for a complete diagnosis and treatment. We recommend that you schedule your follow up appointment as recommended to ensure complete treatment of you illness or injury. If you are unable to obtain follow up care and continue to have a problem, or if your condition worsens, we recommend that you return to the ED. 2. We are not able to safely determine your condition over the phone nor are we able to give sound medical advice over the phone. For these safety reasons, if you call for medical advice we will ask you to come to the ED for further evaluation. 3. If you have any questions regarding these discharge instructions please call the ED at [phone]. SAFETY INFORMATION: In the interest of safety, wellness, and injury prevention; we encourage you to wear your sealbelt, if you smoke; quite smoking, and we encourage family to use a protective helmet for bicycling and other sporting events that present an increased risk for head injury. IF YOUR SYMPTOMS WORSEN OR NEW SYMPTOMS DEVELOP, OR YOU HAVE CONCERNS ABOUT YOUR CONDITION; OR IF YOUR CONDITION WORSENS WHILE YOU ARE WAITING FOR YOUR FOLLOW UP APPOINTMENT; EITHER CONTACT YOUR PRIMARY CARE DOCTOR, THE PHYSICIAN WHOSE NAME AND NUMBER YOU WERE GIVEN, OR RETURN TO THE ED IMMEDIATELY. Scripts Amoxicillin/Potassium Clav (AUGMENTIN 875-125 TABLET) 1 Each Tablet 1 TAB PO BID for dog bite for 7 Days, #14 TAB 0 Refills Prov: ELÍAS FINK APRN 12/10/20 ELÍAS FINK APRN Dec 10, 2020 22:12 MARICEL WAGNER MD Dec 11, 2020 00:52
[2020-12-10] MEDS ORDERED: HYDROcodone/APAP 5/325MG 1 TAB TABLET PO ONE (22:15)
[2020-12-10] MEDS ORDERED: LIDOCAINE 1% Multi-Dose 20 ML VIAL. IJ ONE (22:15)
[2020-12-10] MEDS ORDERED: AMOXICILLIN/K CLAV 875/125MG TABLET. PO ONE (22:15)
[2020-12-10] MEDS ORDERED: LIDOCAINE/EPI/TETRACAINE TOPICAL GEL 3 ML. TP ONE ×2 (22:18→22:30)
[2020-12-10] MEDS ORDERED: ACETAMINOPHEN 325 MG TABLET PO ONE (22:30)
[2020-12-10] MEDS ORDERED: diphenhydrAMINE 50 MG/ML VIAL IM ONE (22:45)
[2020-12-10] MEDS ORDERED: KETOROLAC 60 MG/2 ML VIAL. IM ONE (22:45)
[2020-12-11] MEDS ORDERED: LIDOCAINE 1% Multi-Dose 20 ML VIAL. IJ ONE
== END 2020-12-10 23:40 | disposition home or self-care (01) ==
LOC: ER 21:10
DX: S81.812A Laceration without foreign body, left lower leg, initial encounter (principal); F31.9 Bipolar disorder, unspecified; K21.9 Gastro-esophageal reflux disease without esophagitis; F17.210 Nicotine dependence, cigarettes, uncomplicated; W54.0XXA Bitten by dog, initial encounter; Y93.89 Activity, other specified; Y92.89 Other specified places as the place of occurrence of the external cause; Y99.8 Other external cause status
CPT/HCPCS: 12002; 99283